=== PATIENT | female | born 1985 | race Caucasian/White ===

== ENCOUNTER 2019-11-29 02:20 | Emergency (ER) | payer MEDICAID ==
[~2019-11-29] VITALS: Ht 157.5 cm; Wt 60.3 kg
[2019-11-29 02:34] VITALS: BP 122/75
--- NOTE | 2019-11-29 02:39 | NUR ---
PT AMBULATED TO THE LOBBY. PT UNABLE TO GIVE URINE SPECIMEN DUE TO JUST USING THE RESTROOM
--- NOTE | 2019-11-29 03:05 | NUR ---
PT CALLED IN LOBBY AND OUTSIDE WITH NO ANSWER.
--- NOTE | 2019-11-29 03:12 | NUR ---
PT CALLED IN LOBBY AND OUTSIDE WITH NO ANSWER.
--- NOTE | 2019-11-29 03:13 | NUR ---
PATIENT LEFT WITHOUT BEING SEEN BY DR. MONTAÑO. NO FURTHER CARE PROVIDED FOR PATIENT.
== END 2019-11-29 03:12 | disposition left against medical advice (07) ==
LOC: MED 02:20
DX: R10.11 Right upper quadrant pain (principal); Z53.21 Procedure and treatment not carried out due to patient leaving prior to being seen by health care provider

== ENCOUNTER 2020-11-07 23:16 | Emergency (ER) | payer MEDICAID ==
--- NOTE | 2020-11-07 23:25 | NUR ---
PATIENT CALLED TO BE TRIAGE ,NO RESPONSEPATIENT LEFT WITHOUT BEING SEEN BY DR. AGUILAR. NO FURTHER CARE PROVIDED FOR PATIENT.
--- NOTE | 2020-11-07 23:50 | NUR ---
CALLED FOR THE SECOND TIME . NO RESPONSE
--- NOTE | 2020-11-08 00:21 | NUR ---
CALLED FOR THE THIRD TIME, NO RESPONSE
== END 2020-11-07 23:25 | disposition left against medical advice (07) ==
LOC: MED 23:16
DX: Z53.21 Procedure and treatment not carried out due to patient leaving prior to being seen by health care provider (principal)